=== PATIENT | female | born 1950 | race Caucasian/White ===

== ENCOUNTER 2021-12-26 16:11 | Emergency (ER) | payer MEDICARE, OTHER ==
[~2021-12-26 16:11] MED LIST: CEFUROXIME500 MG PO; NORCO 5-325 TA1 EACH PO
[2021-12-26] MEDS ORDERED: AUGMENTIN 875-1 EACH PO (17:38)
== END 2021-12-26 18:45 | disposition home or self-care (01) ==
LOC: ER1 16:11
DX: S81.851A Open bite, right lower leg, initial encounter (principal); S61.451A Open bite of right hand, initial encounter; W55.51XA Bitten by raccoon, initial encounter
CPT/HCPCS: 90675; 96372; 99283

== ENCOUNTER → 2021-12-29 | Outpatient (CLI) | payer MEDICARE, OTHER ==
[~2021-12-29] MED LIST changes: +AUGMENTIN 875-1 EACH PO
== END ==
LOC: EROP 11:28
DX: Z23 Encounter for immunization (principal); Z20.3 Contact with and (suspected) exposure to rabies; Z29.14 Encounter for prophylactic rabies immune globulin
CPT/HCPCS: 90471; 90675

== ENCOUNTER → 2022-01-02 | Outpatient (CLI) | payer MEDICARE, OTHER ==
[~2022-01-02] VITALS: Ht 160 cm; Wt 79.4 kg
== END ==
LOC: OPSV 10:09
DX: T14.8XXA Other injury of unspecified body region, initial encounter (principal); Z20.3 Contact with and (suspected) exposure to rabies; Z23 Encounter for immunization
CPT/HCPCS: 90675; 96372

== ENCOUNTER → 2022-01-09 | Outpatient (CLI) | payer MEDICARE, OTHER ==
[~2022-01-09] VITALS: Ht 160 cm; Wt 79.4 kg
== END ==
LOC: OPSV 13:36
DX: T14.8XXA Other injury of unspecified body region, initial encounter (principal); W64.XXXA Exposure to other animate mechanical forces, initial encounter
CPT/HCPCS: 90675; 96372

== ENCOUNTER → 2022-01-25 | Outpatient (CLI) | payer MEDICARE, OTHER ==
[~2022-01-25] VITALS: Ht 160 cm; Wt 81.2 kg
== END ==
LOC: OPSV 07:00
DX: T14.8XXA Other injury of unspecified body region, initial encounter (principal); Z23 Encounter for immunization
CPT/HCPCS: 90471; 90675

== ENCOUNTER → 2022-03-24 | Outpatient (CLI) | payer MEDICARE, OTHER | LOC: HEART 5 03-11 09:00 | DX: R01.1 Cardiac murmur, unspecified (principal); R06.02 Shortness of breath | CPT/HCPCS: 78452; 93306; A9502; J2785 ==

== ENCOUNTER → 2022-03-26 | Outpatient (CLI) | payer MEDICARE, OTHER ==
[~2022-03-26] VITALS: Ht 160 cm; Wt 79.4 kg
== END ==
LOC: OPSV 13:57
DX: T14.8XXA Other injury of unspecified body region, initial encounter (principal); Z20.3 Contact with and (suspected) exposure to rabies; Z23 Encounter for immunization
CPT/HCPCS: 90675; 96372

== ENCOUNTER 2022-04-25 15:39 | Emergency (ER) | payer MEDICARE, OTHER ==
[2022-04-25 16:38] LABS: HEMOGLOBIN 12.4 gm/dl (12.3-15.3); RED BLOOD COUNT 4.58 M/UL (4.00-5.10); WHITE BLOOD COUNT 11.1 K/UL (4.5-11.0)
[2022-04-25 17:11] LABS: BUN/CREATININE RATIO 13 (0-10)
[2022-04-25] MEDS ORDERED: AMOX TR-K CLV1 EAC4 PO (21:58)
[2022-04-25] MEDS ORDERED: ZOFRAN ODT 4 MG4 MG PO (22:06)
== END 2022-04-25 22:28 | disposition home or self-care (01) ==
LOC: ER1 15:39
DX: J01.90 Acute sinusitis, unspecified (principal); B96.89 Other specified bacterial agents as the cause of diseases classified elsewhere; R00.0 Tachycardia, unspecified; R01.1 Cardiac murmur, unspecified; R10.817 Generalized abdominal tenderness; E78.5 Hyperlipidemia, unspecified; I10 Essential (primary) hypertension; Z90.49 Acquired absence of other specified parts of digestive tract; Z20.822 Contact with and (suspected) exposure to COVID-19
CPT/HCPCS: 0240U; 71045; 80053; 81001; 82550; 82553; 83605; 83690; 83735; 84100; 84484; 85025; 85652; 86140; 87040; 87086; 93005; 96374; 96375; 96376; 99284; J2270; J2405; Q9967

== ENCOUNTER 2022-06-07 13:00 | Emergency (ER) | payer MEDICARE, OTHER ==
[~2022-06-07 13:00] MED LIST changes: +AMOX TR-K CLV1 EAC4 PO; +ZOFRAN ODT 4 MG4 MG PO
[2022-06-07 14:10] LABS: HEMOGLOBIN 11.7 gm/dl (12.3-15.3); RED BLOOD COUNT 4.33 M/UL (4.00-5.10); WHITE BLOOD COUNT 5.7 K/UL (4.5-11.0)
[2022-06-07 14:33] LABS: BUN/CREATININE RATIO 24 (0-10)
[2022-06-07] MEDS ORDERED: HYDROCODON-ACE1 EAC4 PO (17:09)
== END 2022-06-07 18:20 | disposition home or self-care (01) ==
LOC: ER1 13:00
PROVIDERS: Family Medicine
DX: S22.31XA Fracture of one rib, right side, initial encounter for closed fracture (principal); N13.2 Hydronephrosis with renal and ureteral calculous obstruction; R91.1 Solitary pulmonary nodule; N28.1 Cyst of kidney, acquired; I25.10 Atherosclerotic heart disease of native coronary artery without angina pectoris; I10 Essential (primary) hypertension; W01.10XA Fall on same level from slipping, tripping and stumbling with subsequent striking against unspecified object, initial encounter
CPT/HCPCS: 71260; 80053; 81001; 82550; 82553; 83690; 84484; 85025; 93005; 99284; Q9967